=== PATIENT | male | born 1935 | race Caucasian/White ===

== ENCOUNTER 2017-02-20 19:33 | Emergency (ER) | payer MEDICARE, OTHER ==
[~2017-02-20 19:33] MED LIST: ASAB PO; DCN100 PO; EZFE 200200 MG PO; HYTRIN10 MG PO; KAPIDEX60 MG PO; L5 PO; LIBRAX PO; METAMUCIL CAN7 OZ PO; MULTIPLE VIT PO; NORCO1 TA1 PO; NORV10 PO; PRILO PO; PROTONIX PO; VITAINJ IV; VITD PO; ZESTRIL40 MG PO; ZESTRIL5 MG PO; [UNRECOGNIZED DRUG - OTHER] PO
[2017-02-20 20:15] LABS: BASOPHILS 1.4 %; BASOPHILS ABSOLUTE 0.05 10/3/uL (0.0-0.16); EOSINOPHILS 7.4 %; EOSINOPHILS ABSOLUTE 0.27 10/3/uL (0.0-0.53); ER CBC TAT 0 Hrs 10 Mins; HEMATOCRIT 28.2 % (40.0-51.0); HEMOGLOBIN 9.3 g/dL (13.6-17.8); IMMATURE GRANULOCYTES 0.3 %; IMMATURE GRANULOCYTES ABSOLUTE 0.01 10/3/uL (0.0-0.11); LYMPHOCYTES 40.3 %; LYMPHOCYTES ABSOLUTE 1.48 10/3/uL (0.67-4.30); MANUAL DIFF NO %; MEAN CORPUSCULAR HEMOGLOB 31.6 pg (26.0-34.0); MEAN CORPUSCULAR VOLUME 95.9 fL (80-100); MEAN PLATELET VOLUME 9.8 fL (9.2-13.0); MONOCYTES 13.1 %; MONOCYTES ABSOLUTE 0.48 10/3/uL (0.21-1.20); NEUTROPHILS 37.5 %; NEUTROPHILS ABSOLUTE 1.38 10/3/uL (2.02-8.40); PLATELET COUNT 246 10/3/uL (150-400); RBC DISTRIBUTION WIDTH 15.5 % (12.0-16.0); RED CELL COUNT 2.94 10/6/uL (4.7-6.1); WHITE BLOOD CELLS 3.7 10/3/uL (4.5-10.5)
[2017-02-20 20:32] LABS: A/G RATIO 1.1 (0.7-1.9); ALBUMIN 2.9 G/DL (3.5-5.0); ALKALINE PHOSPHATASE 77 U/L (45-117); BUN (BLOOD UREA NITROGEN) 45 MG/DL (6-23); CALCIUM, SERUM 7.7 MG/DL (8.5-10.4); CHLORIDE, SERUM 106 MMOL/L (96-112); CO2 (CARBON DIOXIDE) 24 MMOL/L (24-34); CREATININE 4.06 MG/DL (0.70-1.30); GFR AFRICAN AMERICAN 15 ML/MIN (>=60); GFR NON AFRICAN AMERICAN 13 ML/MIN (>=60); GLOBULIN 2.6 G/DL (2.5-4.1); GLUCOSE, SERUM 117 MG/DL (60-99); SGOT(AST) 19 U/L (5-40); SGPT(ALT) 21 U/L (5-65); SODIUM, SERUM 140 MMOL/L (135-148); TOTAL BILIRUBIN 0.4 MG/DL (0-1.2); TOTAL PROTEIN 5.5 G/DL (6.0-8.5)
[2017-04-24] MEDS ORDERED: [UNRECOGNIZED DRUG - OTHER] TOP (12:38)
[2017-04-24] MEDS ORDERED: ASAB PO (12:38)
[2017-05-20] MEDS ORDERED: DEMA20 PO (18:23)
[2017-05-24] MEDS ORDERED: COUMADIN4 MG (11:46)
[2017-05-24] MEDS ORDERED: OXYCOD PO (11:46)
== END 2017-02-20 22:20 | disposition home or self-care (01) ==
LOC: ER 19:33
PROVIDERS: Emergency Medicine
DX: J18.9 Pneumonia, unspecified organism (principal); Z87.01 Personal history of pneumonia (recurrent); Z79.82 Long term (current) use of aspirin; Z79.899 Other long term (current) drug therapy
CPT/HCPCS: 71020; 80053; 85025; 87040; 93005; 94640; 99285; A9270-GY

== ENCOUNTER 2017-04-01 06:40 | Inpatient (IN) | payer MEDICARE, OTHER ==
--- NOTE | ~2017-04-01 | OP ---
Record Of Operation [facility] [address] [place]. [address] NAME: MARITO YBARRA : 36 STATUS : ADM IN PAT#: [id number] AGE: 82 ADM/REG DATE : 04/02/17 MR#: [id number] REPORT SERV DATE: 04/03/17 DICTATED BY: DAWIT MACK DATE: 04/03/17 REPORT STATUS : Draft TRANSCRIBED BY: MODL DATE: 04/03/17 DATE OF PROCEDURE: 04/03/2017 INDICATION: Chest pain and shortness of breath in a patient with known history of coronary artery disease. PROCEDURE: Left heart catheterization, coronary arteriography, left ventriculography. DESCRIPTION OF PROCEDURE: After informed consent was obtained, the patient was taken in a fasting state to the cardiac catheterization laboratory where he was prepped and draped in a sterile fashion. IV moderate sedation was obtained using intravenous Versed and fentanyl. The right inguinal region was anesthetized using 1% Xylocaine. The right femoral artery was then entered using front-wall approach and cannulated with 6-Panamanian arterial sheath. A 6- Panamanian JL4 catheter was used to engage the left main coronary artery. Serial angiograms were obtained. A 6-Panamanian Johnathan right catheter was used to engage the right coronary artery. Serial angiograms were obtained. A 6-Panamanian angled pigtail catheter was used across the aortic valve at which time a left ventriculogram was performed. The catheter was then withdrawn back across the aortic valve with no significant aortic transvalvular gradient. Results of study are as follows: HEMODYNAMICS: Aorta 140/60 with a mean pressure of 92 mmHg. Left ventricle 149/8 with end- diastolic pressure of 11 mmHg. CORONARY ANATOMY: 1. Left main coronary artery: The left main coronary artery arises normally from left coronary cusp. This vessel has a 20% distal tapering stenosis. 2. Left anterior descending artery: The left anterior descending artery arises normally from left main coronary artery. This vessel has calcifications in the proximal segment. The vessel has diffuse luminal irregularities of 20% to 30%. There is a [id number] caliber first diagonal branch, which has a 70% ostial stenosis. 3. Ramus intermedius: The ramus intermedius arises normally from left main coronary artery. This vessel has luminal irregularities of 20% to 30%. 4. Left circumflex artery: The left circumflex artery arises normally from the left main coronary artery. This vessel is nondominant. This vessel has luminal irregularities of 20% to 30%. 5. Right coronary artery: The right coronary artery arises normally from the right coronary cusp. This vessel has discrete lesions in the mid and distal segments of 40% to 50% each. This vessel is dominant. 6. Left ventriculogram: The left ventriculogram was performed, which showed mild global hypokinesis with an ejection fraction of 40% to 45%. There is mild mitral insufficiency. COMPLICATIONS: There were no apparent complications. CONCLUSIONS: 1. Multivessel coronary artery disease as described above. Flow-limiting disease in a Record Of Operation [address] [address] NAME: MARITO YBARRA : 36 STATUS : ADM IN [facility]#: [id number] AGE: 82 ADM/REG DATE : 04/02/17 MR#: [id number] REPORT SERV DATE: 04/03/17 DICTATED BY: DAWIT MACK DATE: 04/03/17 REPORT STATUS : Draft TRANSCRIBED BY: CLARITA DATE: 04/03/17 [id number] first diagonal artery, which will be managed medically. 2. Normal hemodynamics. 3. Mildly depressed left ventricular systolic function with mild mitral insufficiency. 4. No significant interval change since the previous study of 2013. SA/CLARITA Dawit Mack M.D., [facility] / [id number] CC: Dawit Mack M.D., [facility]ACC UNKNOWN Darrel Orellana M.D.
--- NOTE | ~2017-04-01 | CN ---
Consultation Report [facility] [address] [facility] [place]. [address] NAME: MARITO VASQUEZ : 37 STATUS : ADM Lew PAT#: [id number] AGE: 82 ADM/REG DATE : 04/01/17 MR#: [id number] REPORT SERV DATE: 04/01/17 DICTATED BY: DATE: REPORT STATUS : Draft TRANSCRIBED BY: MODL DATE: 04/01/17 CONSULTATION REPORT DATE OF CONSULTATION: REASON FOR CONSULTATION: Acute kidney injury. HISTORY OF PRESENT ILLNESS: Mr. Vasquez is an 82-year-old white male with a history of CKD, stage IV in the setting of hypertension; CHF; coronary artery disease; as well as left renal mass, status post ablation, followed by Dr. Leone who presented to the hospital after waking this morning with smothering. He states he was short of breath last night before he went to bed, but was able lay down and get to sleep, however, this morning woke up with a smothering feeling and some chest pressure across the chest. He states that most recently Dr. Dela Cruz had to put him on Lasix for lower extremity edema, and despite this, his lower extremity edema is not better. He states the smothering feeling is improved. Creatinine at this time is up to 4.08. He has significant pulmonary edema on his chest x-ray, and we were asked to see him in consultation. In regard to dialysis and planning for the future, there is no plan in place for dialysis at this point, and he has been hoping to put it off and not need it. Last creatinine in the office 02/26/2017 was 3.8. PAST MEDICAL HISTORY: CKD, stage IV; nonnephrotic proteinuria; coronary artery disease; hypertension; reflux; hyperlipidemia; systolic and diastolic heart failure; left renal mass, status post ablation; bilateral benign cysts of the kidney; splenectomy; diverticulosis; peptic ulcer disease; and reflux. He has had splenectomy, cholecystectomy, appendectomy, shoulder and knee surgery, secondary hyperparathyroidism, BPH, and chronic low back pain. FAMILY MEDICAL HISTORY: No end-stage renal disease. Positive for coronary artery disease. SOCIAL HISTORY: He is , helps care for his . Continues to work in his [employer] business. Has a distant history of tobacco. No alcohol use. ALLERGIES: NONE. MEDICATIONS: Albuterol, amlodipine, aspirin, vitamin D, ferrous sulfate, [place], Prinivil, Prilosec, Metamucil, sodium bicarbonate, Hytrin, and Spiriva. Not listed on his home medicine list is also furosemide after discussion with the patient. REVIEW OF SYSTEMS: A 12-point review of systems obtained and negative with the exception of that in the HPI. PHYSICAL EXAMINATION: VITAL SIGNS: Temp 98.5, blood pressure is 187/92, pulse 51, respiratory rate 20, and O2 saturation is 94%. GENERAL: This is a pleasant, cooperative, white male. He is awake, alert, oriented x3, and Consultation Report [facility] [address] [facility] [place]. [address] NAME: MARITO VASQUEZ : 37 STATUS : ADM Lew PAT#: [id number] AGE: 82 ADM/REG DATE : 04/01/17 MR#: [id number] REPORT SERV DATE: 04/01/17 DICTATED BY: DATE: REPORT STATUS : Draft TRANSCRIBED BY: MODL DATE: 04/01/17 in no acute distress. He answers questions appropriately. HEENT: Normocephalic and atraumatic. Conjunctivae are clear. Sclerae are anicteric. Pupils are equal and round. Oral mucosa is moist. NECK: Supple. He has some mild neck vein distention. No lymphadenopathy. LUNGS: Respirations are even and unlabored. He has expiratory wheezing, left lung more than right with decreased bases bilaterally. HEART: His heart rate is regular. I did not hear a murmur, rub, or gallop. ABDOMEN: Soft and nontender. Bowel sounds are active. No masses or hepatosplenomegaly. No bruits. No CVA tenderness. BACK: Within normal limits. EXTREMITIES: He has 1 to 2+ pitting edema to the right lower extremity and 1+ edema to the left lower extremity. SKIN: Warm, dry, and intact. No unusual rashes or skin lesions. NEURO: No focal deficits. Mood and affect, pleasant and appropriate. PERTINENT LABS AND X-RAYS: BNP of 1625. Chest x-ray with bilateral pulmonary edema. Troponin 0.02. Sodium 143, potassium 4, chloride 111, CO2 of 22, BUN of 33, creatinine of 4.08, calcium of 8.4, and magnesium of 2.5. WBC 5.7, H and H 9 and 29, and platelets 187,000. IMPRESSION: 1. Acute kidney injury. 2. Chronic kidney disease, stage IV. 3. Acute exacerbation of congestive heart failure with systolic and diastolic dysfunction. 4. Coronary artery disease. 5. Hypertension. 6. History of left renal mass, status post ablation. PLAN/RECOMMENDATION: Acute kidney injury on CKD. Actually, creatinine is not that far from his most recent baseline. Question if this is some cardiorenal syndrome versus progression of chronic kidney disease. He is very hesitant/resistant to the idea of dialysis, but would do so if life depended on it. Work on IV diuretics for now on switching him to p.o. regimen. There is no immediate need for dialysis. We will follow I's and O's and labs along with you. I did discuss that if he does need a heart catheterization most likely he will be at high risk for progression of disease and need of renal replacement therapy and he understands this. We will follow along with you. Thank you for the consultation. ERWIN/CLARITA JOHN Addison Consultation Report [address] [place]. [address] NAME: MARITO VASQUEZ : 37 STATUS : ADM Lew PAT#: [id number] AGE: 82 ADM/REG DATE : 04/01/17 MR#: [id number] REPORT SERV DATE: 04/01/17 DICTATED BY: DATE: REPORT STATUS : Draft TRANSCRIBED BY: CLARITA DATE: 04/01/17 / [id number] CC: Dawit Dela Cruz M.D., [facility]
--- NOTE | ~2017-04-01 | HP ---
History And Physical [facility] [id number] [place]. [address] NAME: THEO YBARRA : 37 STATUS : ADM Lew PAT#: [id number] AGE: 82 ADM/REG DATE : 04/01/17 MR#: [id number] REPORT SERV DATE: 04/02/17 DICTATED BY: DAWIT MACK DATE: 04/01/17 REPORT STATUS : Draft TRANSCRIBED BY: MODL DATE: 04/01/17 DATE OF ADMISSION: 04/01/2017 HISTORY OF PRESENT ILLNESS: Mr. Theo Dickinson is an 82-year-old gentleman who I follow for chronic systolic and diastolic congestive heart failure, mitral insufficiency, hypertension, coronary artery disease, and frequent PVCs. He presented to the emergency room complaining of a 2 to 3 day history of increasing shortness of breath and lower extremity edema. The patient reports that he also had some chest discomfort, which lasted 3 to 4 minutes. He denied any associated nausea, diaphoresis, or radiation of the discomfort. REVIEW OF SYSTEMS: The patient reports increasing orthopnea with several episodes of paroxysmal nocturnal dyspnea. He has had some mild intermittent chest pain. He denies any syncope or presyncope. He does not notice palpitations. He denies any gastrointestinal, genitourinary, or neurologic complaints. PAST MEDICAL HISTORY: As noted above, significant for congestive heart failure. The patient has chronic systolic and diastolic failure. His last echocardiogram was performed last month at my office, which showed an ejection fraction of 35% to 40%. It also showed moderate mitral insufficiency and likely mitral valve prolapse with an eccentric jet. He has trivial aortic insufficiency. The patient has a history of chronic kidney disease. He is followed by Dr. Greg Stanton for stage IV disease. He has history of hypertension, hyperlipidemia, frequent PVCs. He had pneumonia in December of this year. He is status post three shoulder surgeries and two knee surgeries. He is status post appendectomy, hiatal hernia repair. He is status post gastric resection. He is status post previous stent. His most recent cardiac catheterization was in October 2014, which showed some small vessel disease and which was medically managed. FAMILY HISTORY: Positive for coronary artery disease. SOCIAL HISTORY: The patient has not smoked since . ALLERGIES: THE PATIENT REPORTS NO KNOWN DRUG ALLERGIES. MEDICATIONS: See list. PHYSICAL EXAMINATION: VITAL SIGNS: Blood pressure 169/91, pulse 58, temp 98.3, respiratory rate 20. GENERAL: He is a well-developed, well-nourished 82-year-old white male alert and oriented x3, in no acute distress. NECK: No jugular venous distention, hepatojugular reflux, or carotid bruits. CARDIOVASCULAR: Mildly decreased rate with regular rhythm. A 1/6 holosystolic murmur, which radiates to the apex. LUNGS: Clear to auscultation without wheezes, rales, or rhonchi. ABDOMEN: Soft, nontender, and nondistended. Positive bowel sounds. EXTREMITIES: Reveals 1+ lower extremity pitting edema. History And Physical [address] [address] NAME: THEO YBARRA : 37 STATUS : ADM Lew PAT#: [id number] AGE: 82 ADM/REG DATE : 04/01/17 MR#: [id number] REPORT SERV DATE: 04/02/17 DICTATED BY: DAWIT MACK DATE: 04/01/17 REPORT STATUS : Draft TRANSCRIBED BY: CLARITA DATE: 04/01/17 DATA REVIEWED: EKG shows sinus bradycardia with a heart rate of 50 beats per minute. This is known to be chronic. There is no evidence of recent or remote myocardial infarction and no evidence of acute ischemia or injury. Troponin x2 is negative. LABORATORY DATA: Significant for hematocrit which is low at 29. BUN and creatinine, which were elevated at 33 and 4.08, which is a significant increase over previous creatinine. Troponin x2 is negative. BNP is elevated at 1625. ASSESSMENT: 1. Congestive heart failure, acute on chronic systolic and diastolic. 2. Chronic kidney disease, which has progressed. 3. Mitral insufficiency - Moderate. 4. Frequent premature ventricular contractions - Chronic. 5. Bradycardia - Chronic. 6. Hypertension. 7. Hyperlipidemia. 8. Coronary artery disease, managed medically. PLAN: 1. See orders to include home medications and additional diuresis. 2. I have discussed possible need for hemodialysis. The patient is agreeable to this if necessary. I feel likely combination of his heart failure and chronic kidney disease are the reason for his presentation. No evidence of acute ischemia. 3. The patient's mitral insufficiency is certainly a contributing factor and with his left ventricular dilatation, would be a consideration for mitral valve repair, however, he and I have discussed this in the past and as this was most certainly lead to hemodialysis, he has declined. 4. I have consulted Nephrology and we will follow their recommendations as well. /CLARITA Dawit Mack M.D., [facility] / [id number] CC: Dawit Mack M.D., [facility] Petey Stanton M.D.
[2017-04-01 05:49] LABS: BASOPHILS 0.7 %; BASOPHILS ABSOLUTE 0.04 10/3/uL (0.0-0.16); EOSINOPHILS ABSOLUTE 0.23 10/3/uL (0.0-0.53); HEMATOCRIT 29.2 % (40.0-51.0); HEMOGLOBIN 9.5 g/dL (13.6-17.8); IMMATURE GRANULOCYTES 0.2 %; IMMATURE GRANULOCYTES ABSOLUTE 0.01 10/3/uL (0.0-0.11); LYMPHOCYTES 22.9 %; LYMPHOCYTES ABSOLUTE 1.31 10/3/uL (0.67-4.30); MEAN CORPUS HGB CONC 32.5 g/dL (32.0-36.0); MEAN CORPUSCULAR VOLUME 95.4 fL (80-100); MONOCYTES 10.3 %; MONOCYTES ABSOLUTE 0.59 10/3/uL (0.21-1.20); NEUTROPHILS 61.9 %; NEUTROPHILS ABSOLUTE 3.53 10/3/uL (2.02-8.40); PLATELET COUNT 187 10/3/uL (150-400); RBC DISTRIBUTION WIDTH 15.5 % (12.0-16.0); RED CELL COUNT 3.06 10/6/uL (4.7-6.1)
[2017-04-01 05:54] LABS: ER CBC TAT 0 Hrs 09 Mins; MANUAL DIFF NO %; WHITE BLOOD CELLS 5.7 10/3/uL (4.5-10.5)
[2017-04-01 06:02] LABS: PARTIAL THROMBO TIME 29.7 SEC (22.5-37.2)
[2017-04-01 06:03] LABS: INTERNATIONAL NORMAL RATI 1.2 UNITS (-); PROTIME (NOT ORD) 15.3 SEC (12.0-14.5)
[2017-04-01 06:06] LABS: CALCIUM, SERUM 8.4 MG/DL (8.5-10.4); CHEST PAIN PROFILE TAT 0 Hrs 21 Mins; CHLORIDE, SERUM 111 MMOL/L (96-112); CO2 (CARBON DIOXIDE) 22 MMOL/L (24-34); CREATININE 4.08 MG/DL (0.70-1.30); GFR AFRICAN AMERICAN 15 ML/MIN (>=60); GFR NON AFRICAN AMERICAN 13 ML/MIN (>=60); GLUCOSE, SERUM 113 MG/DL (60-99); SODIUM, SERUM 143 MMOL/L (135-148); TROPONIN I 0.02 NG/ML (<0.05)
[2017-04-01 06:07] LABS: BUN (BLOOD UREA NITROGEN) 33 MG/DL (6-23)
[2017-04-01] MEDS ORDERED: HYTRIN10 MG PO (07:55)
[2017-04-01] MEDS ORDERED: NORCO1 TAB PO (07:55)
[2017-04-01] MEDS ORDERED: PRIN10 PO (07:55)
[2017-04-01] MEDS ORDERED: NORV10 PO (07:55)
[2017-04-01] MEDS ORDERED: PRILOSEC40 MG PO (07:55)
[2017-04-01] MEDS ORDERED: VITD PO (07:56)
[2017-04-01] MEDS ORDERED: HALF81 PO (07:56)
[2017-04-01] MEDS ORDERED: SODBICAR10 PO (07:56)
[2017-04-01] MEDS ORDERED: FERROUS SULF325 M1 PO (07:57)
[2017-04-01] MEDS ORDERED: METPAKSF PO (07:57)
[2017-04-01] MEDS ORDERED: PROVHFA PO (08:02)
[2017-04-01] MEDS ORDERED: SPIRIVA RESPIMAT INH (08:02)
[2017-04-01 18:17] LABS: WBC (NOT ORDERED) (RFLEX) 0 (0-5)
[2017-04-01 18:28] LABS: ASCORBIC ACID (UR NOT ORDER) NEG (NEG); BILIRUBIN, URINE NEGATIVE (NEG); KETONE, URINE NEGATIVE (NEG); LEUKOCYTE ESTERASE(NOT OR NEG (NEG)
[2017-04-02 04:42] LABS: BASOPHILS 0.7 %; BASOPHILS ABSOLUTE 0.04 10/3/uL (0.0-0.16); EOSINOPHILS 5.6 %; EOSINOPHILS ABSOLUTE 0.31 10/3/uL (0.0-0.53); HEMATOCRIT 28.4 % (40.0-51.0); HEMOGLOBIN 9.1 g/dL (13.6-17.8); IMMATURE GRANULOCYTES 0.2 %; IMMATURE GRANULOCYTES ABSOLUTE 0.01 10/3/uL (0.0-0.11); LYMPHOCYTES 26.8 %; LYMPHOCYTES ABSOLUTE 1.47 10/3/uL (0.67-4.30); MEAN CORPUSCULAR HEMOGLOB 30.8 pg (26.0-34.0); MEAN CORPUSCULAR VOLUME 96.3 fL (80-100); MEAN PLATELET VOLUME 10.4 fL (9.2-13.0); MONOCYTES 12.9 %; MONOCYTES ABSOLUTE 0.71 10/3/uL (0.21-1.20); NEUTROPHILS 53.8 %; NEUTROPHILS ABSOLUTE 2.95 10/3/uL (2.02-8.40); PLATELET COUNT 196 10/3/uL (150-400); RBC DISTRIBUTION WIDTH 15.2 % (12.0-16.0); RED CELL COUNT 2.95 10/6/uL (4.7-6.1); WHITE BLOOD CELLS 5.5 10/3/uL (4.5-10.5)
[2017-04-02 04:43] LABS: MANUAL DIFF NO %
[2017-04-02 05:02] LABS: ALBUMIN 2.9 G/DL (3.5-5.0); BUN (BLOOD UREA NITROGEN) 36 MG/DL (6-23); CALCIUM, SERUM 8.8 MG/DL (8.5-10.4); CHLORIDE, SERUM 110 MMOL/L (96-112); CO2 (CARBON DIOXIDE) 23 MMOL/L (24-34); GFR AFRICAN AMERICAN 14 ML/MIN (>=60); GFR NON AFRICAN AMERICAN 12 ML/MIN (>=60); GLUCOSE, SERUM 106 MG/DL (60-99); PHOSPHORUS, SERUM 4.6 MG/DL (2.5-4.5); POTASSIUM, SERUM 3.9 MMOL/L (3.5-5.3); SODIUM, SERUM 144 MMOL/L (135-148)
[2017-04-03 04:53] LABS: BASOPHILS 0.3 %; BASOPHILS ABSOLUTE 0.02 10/3/uL (0.0-0.16); EOSINOPHILS 4.7 %; EOSINOPHILS ABSOLUTE 0.28 10/3/uL (0.0-0.53); HEMATOCRIT 29.3 % (40.0-51.0); HEMOGLOBIN 9.4 g/dL (13.6-17.8); IMMATURE GRANULOCYTES 0.3 %; IMMATURE GRANULOCYTES ABSOLUTE 0.02 10/3/uL (0.0-0.11); LYMPHOCYTES 20.1 %; LYMPHOCYTES ABSOLUTE 1.21 10/3/uL (0.67-4.30); MEAN CORPUS HGB CONC 32.1 g/dL (32.0-36.0); MEAN CORPUSCULAR HEMOGLOB 30.7 pg (26.0-34.0); MEAN CORPUSCULAR VOLUME 95.8 fL (80-100); MEAN PLATELET VOLUME 10.2 fL (9.2-13.0); MONOCYTES 12.5 %; MONOCYTES ABSOLUTE 0.75 10/3/uL (0.21-1.20); NEUTROPHILS 62.1 %; NEUTROPHILS ABSOLUTE 3.74 10/3/uL (2.02-8.40); PLATELET COUNT 201 10/3/uL (150-400); RBC DISTRIBUTION WIDTH 15.2 % (12.0-16.0); RED CELL COUNT 3.06 10/6/uL (4.7-6.1)
[2017-04-03 04:55] LABS: MANUAL DIFF NO %
[2017-04-03 05:10] LABS: BUN (BLOOD UREA NITROGEN) 37 MG/DL (6-23); CALCIUM, SERUM 8.4 MG/DL (8.5-10.4); CHLORIDE, SERUM 108 MMOL/L (96-112); CHOL/HDL RATIO(NOT ORDER) 2.9 (0-5); CHOLESTEROL 125 MG/DL (< 200); CO2 (CARBON DIOXIDE) 23 MMOL/L (24-34); CREATININE 4.35 MG/DL (0.70-1.30); GFR AFRICAN AMERICAN 14 ML/MIN (>=60); GFR NON AFRICAN AMERICAN 12 ML/MIN (>=60); GLUCOSE, SERUM 100 MG/DL (60-99); HDL CHOLESTEROL 43 MG/DL (> 39); LDL CHOLESTEROL 68 MG/DL (< 130); NON-HDL CHOLESTEROL 82 MG/DL (< 160); SODIUM, SERUM 143 MMOL/L (135-148); TRIGLYCERIDE 74 MG/DL (< 150)
[2017-04-04 03:52] LABS: ALBUMIN 2.9 G/DL (3.5-5.0); CALCIUM, SERUM 7.8 MG/DL (8.5-10.4); CHLORIDE, SERUM 109 MMOL/L (96-112); CO2 (CARBON DIOXIDE) 22 MMOL/L (24-34); CREATININE 4.17 MG/DL (0.70-1.30); GFR AFRICAN AMERICAN 14 ML/MIN (>=60); GFR NON AFRICAN AMERICAN 13 ML/MIN (>=60); PHOSPHORUS, SERUM 4.4 MG/DL (2.5-4.5); POTASSIUM, SERUM 4.1 MMOL/L (3.5-5.3); SODIUM, SERUM 140 MMOL/L (135-148)
[2017-04-04 03:56] LABS: BUN (BLOOD UREA NITROGEN) 41 MG/DL (6-23); GLUCOSE, SERUM 79 MG/DL (60-99)
[2017-04-04] MEDS ORDERED: DEMA20 PO (17:00)
[2017-04-04] MEDS ORDERED: ATEN25 PO (17:01)
[2017-04-24] MEDS ORDERED: ASAB PO (12:38)
[2017-04-24] MEDS ORDERED: [UNRECOGNIZED DRUG - OTHER] TOP (12:38)
[2017-05-20] MEDS ORDERED: DEMA20 PO (18:23)
[2017-05-24] MEDS ORDERED: OXYCOD PO (11:46)
[2017-05-24] MEDS ORDERED: COUMADIN4 MG (11:46)
== END 2017-04-04 17:21 | disposition home or self-care (01) | DRG 286 ==
LOC: ER 06:40 → CDU1 07:43
PROVIDERS: Internal Medicine Interventional Cardiology; Nurse Practitioner; Specialist
PROC: 4A023N7 Measurement of Cardiac Sampling and Pressure, Left Heart, Percutaneous Approach (ICD-10-PCS; principal; 2017-04-03)
PROC: B2111ZZ Fluoroscopy of Multiple Coronary Arteries using Low Osmolar Contrast (ICD-10-PCS; 2017-04-03)
PROC: B2151ZZ Fluoroscopy of Left Heart using Low Osmolar Contrast (ICD-10-PCS; 2017-04-03)
DX: I13.0 Hypertensive heart and chronic kidney disease with heart failure and stage 1 through stage 4 chronic kidney disease, or unspecified chronic kidney disease (principal); I50.43 Acute on chronic combined systolic (congestive) and diastolic (congestive) heart failure; N18.4 Chronic kidney disease, stage 4 (severe); N17.9 Acute kidney failure, unspecified; I34.0 Nonrheumatic mitral (valve) insufficiency; R00.1 Bradycardia, unspecified; I25.10 Atherosclerotic heart disease of native coronary artery without angina pectoris; I49.3 Ventricular premature depolarization; E78.5 Hyperlipidemia, unspecified; Z87.01 Personal history of pneumonia (recurrent); Z90.3 Acquired absence of stomach [part of]; Z87.891 Personal history of nicotine dependence
CPT/HCPCS: 71010; 76775; 80048; 80061; 80069; 81001; 83735; 83880; 84484; 85025; 85610; 85730; 93005; 93458; 99152; 99285; A9270-GY; C1769; C1894; J2250; J3010; Q9967